=== PATIENT | female | born 1960 | race Caucasian/White ===

== ENCOUNTER 2022-04-11 07:59 | Outpatient (CLI) | payer BC ==
[2022-04-11] MEDS ORDERED: Iopamidol 300 61% 100 ML VIAL FS ONE (13:59)
== END 2022-04-11 08:00 | disposition home or self-care (01) ==
LOC: CSHCT 07:59
PROVIDERS: ATTEND Physician Assistant Medical
DX: K59.09 Other constipation (principal); R14.0 Abdominal distension (gaseous); K44.9 Diaphragmatic hernia without obstruction or gangrene; N83.8 Other noninflammatory disorders of ovary, fallopian tube and broad ligament
CPT/HCPCS: 74177; 82565; Q9967